=== PATIENT | male | born 1990 | race American Indian/Alaskan Native ===

== ENCOUNTER 2021-06-07 13:32 | Emergency (ER) | payer OTHER ==
--- NOTE | 2021-06-07 15:03 | RAD REPORT ---
EXAM DESCRIPTION: US - Scrotum Testicles - 06/07/2021 2:50 pm CLINICAL HISTORY: scrotal pain COMPARISON: Scrotum Testicles dated 06/05/2017 FINDINGS: The right testicle 4.1 x 2.2 x 2.8 cm with volume of 13.3 cc. No intratesticular masses or evidence of testicular torsion. The left testicle 4.1 x 1.9 x 3.8 cm with volume of 15.7 cc. No intratesticular masses or evidence of testicular torsion. Both epididymides are normal in size and appearance. No pathologic fluid collections. IMPRESSION: Unremarkable study. Vascular flow was present within both testicles.
[2021-06-07 16:42] LABS: Urine Blood Negative (Negative); Urine Glucose Negative (Negative); Urine Protein Negative (Negative)
[2021-06-07] MEDS ORDERED: NA CHLORIDE 0.9% 1,000 ML ONE (16:56)
[2021-06-07 16:58] LABS: Absolute Lymphocytes (CBC) 1.1 K/uL (0.7-4.9); Basophils % 0.8 % (0-1.3); Hematocrit 45.3 % (39.6-49.0); Lymphocytes % 31.2 % (15.3-44.8); RBC Red Blood Cell Count 5.57 M/uL (4.33-5.43)
[2021-06-07 17:11] LABS: Urine Bacteria <20 /HPF (NONE SEEN); Urine RBC NONE SEEN /HPF (NONE SEEN)
[2021-06-07 17:19] LABS: ALT/SGPT 29 U/L (12-78); AST/SGOT 19 U/L (15-37); Albumin 4.4 g/dL (3.4-5.0); Alkaline Phosphatase 55 U/L (45-117); BUN Blood Urea Nitrogen 16 mg/dL (7-18); Bicarbonate 28 mmol/L (21-32); Bilirubin Direct 0.3 mg/dL (0-0.2); Bilirubin Total 1.2 mg/dL (0.2-1.0); Glucose Level 92 mg/dL (74-106); Lipase 102 U/L (73-393); Potassium 3.9 mmol/L (3.5-5.1); Protein, Total 7.9 g/dL (6.4-8.2); Sodium Level 140 mmol/L (136-145)
--- NOTE | 2021-06-07 17:34 | RAD REPORT ---
EXAM DESCRIPTION: CTAbdomen Pelvis W Contrast - 06/07/2021 5:26 pm CLINICAL HISTORY: Abdominal pain. RLQ PAIN COMPARISON: No comparisons TECHNIQUE: Biphasic CT imaging of the abdomen and pelvis was performed with 100 ml non-ionic IV cont rast. All CT scans are performed using dose optimization technique as appropriate and may include automated exposure control or mA/KV adjustment according to patient size. FINDINGS: The lung bases are clear. The liver, spleen, pancreas, adrenal glands and kidneys are within normal limits. Moderate stool is present within the colon. No bowel obstruction is identified. No appendicitis ident ified. The appendix is normal. There is some fluid within the distal small bowel which is nonspecific . No inflammatory changes are identified. No evidence of significant lymphadenopathy. No suspicious bony findings. IMPRESSION: No acute intra-abdominal or pelvic finding. Normal appendix No urinary tract calculi mya ntified.
--- NOTE | 2021-06-07 18:51 | ER ---
Nurse's Notes [facility] Name: Bhavin Correa Age: 31 yrs Sex: Male : 1990 Arrival Date: 06/07/2021 Time: 13:36 Bed 30 Private MD: Santo Cuveas R Diagnosis: Abdominal pain, unspecified-groin pain Presentation: 06/07 13:38 Chief complaint: Sudden onset testicular pain that radiates to groin after standing up hb form chair today. Coronavirus screen: At this time, the client does not indicate any symptoms associated with coronavirus-19. Ebola Screen: No symptoms or risks identified at this time. Initial Sepsis Screen: Does the patient meet any 2 criteria? No. Patient's initial sepsis screen is negative. Does the patient have a suspected source of infection? No. Patient's initial sepsis screen is negative. Risk Assessment: Do you want to hurt yourself or someone else? Patient reports no desire to harm self or others. Onset of symptoms was June 07, 2021. 13:38 Method Of Arrival: Ambulatory hb 13:38 Acuity: OLLIE 3 hb Historical: - Allergies: 13:39 No Known Allergies; hb - Home Meds: 13:39 None [Active]; hb - PMHx: 13:39 None; hb - PSHx: 13:39 None; hb - Immunization history:: Adult Immunizations up to date. - Social history:: Smoking status: Patient denies any tobacco usage or history of. Screenin:50 Abuse screen: Denies threats or abuse. Nutritional screening: No deficits noted. vg1 Tuberculosis screening: No symptoms or risk factors identified. Fall Risk No fall in past 12 months (0 pts). No secondary diagnosis (0 pts). No IV (0 pts). Ambulatory Aid- None/Bed Rest/Nurse Assist (0 pts). Gait- Normal/Bed Rest/Wheelchair (0 pts) Mental Status- Oriented to own ability (0 pts). Total [place] Fall Scale indicates No Risk (0-24 pts). Assessment: 13:50 General: Appears in no apparent distress. comfortable, Behavior is calm, cooperative. vg1 Pain: Complains of pain in groin and right femoral area Pain currently is 3 out of 10 on a pain scale. Pain began about a week ago. Neuro: Level of Consciousness is awake, alert, obeys commands, Oriented to person, place, time, situation. Cardiovascular: Patient's skin is warm and dry. Respiratory: Airway is patent Respiratory effort is even, unlabored. GI: No signs and/or symptoms were reported involving the gastrointestinal system. : No signs and/or symptoms were reported regarding the genitourinary system. EENT: No signs and/or symptoms were reported regarding the EENT system. Derm: Skin is intact, is healthy with good turgor. Musculoskeletal: Circulation, motion, and sensation intact. 14:53 Reassessment: Patient appears in no apparent distress at this time. No changes from vg1 previously documented assessment. Patient and/or family updated on plan of care and expected duration. Pain level reassessed. Patient is alert, oriented x 3, equal unlabored respirations, skin warm/dry/pink. 16:12 Reassessment: Patient appears in no apparent distress at this time. No changes from vg1 previously documented assessment. Patient and/or family updated on plan of care and expected duration. Pain level reassessed. Patient is alert, oriented x 3, equal unlabored respirations, skin warm/dry/pink. 18:03 Reassessment: Patient appears in no apparent distress at this time. No changes from vg1 previously documented assessment. Patient is alert, oriented x 3, equal unlabored respirations, skin warm/dry/pink. 19:14 Reassessment: Patient appears in no apparent distress at this time. Patient and/or vg1 family updated on plan of care and expected duration. Pain level reassessed. Patient is alert, oriented x 3, equal unlabored respirations, skin warm/dry/pink. Patient denies pain at this time. Vital Signs: 13:38 BP 126 / 83; Pulse 81; Resp 16; Temp 97.7; Pulse Ox 100% on R/A; Weight 56.7 kg; Height hb 5 ft. 9 in. (175.26 cm); Pain 5/10; 14:53 BP 117 / 77; Pulse 78; Resp 16; Pulse Ox 100% on R/A; vg1 16:12 BP 114 / 79; Pulse 70; Resp 16; Pulse Ox 100% ; vg1 16:52 BP 125 / 80; Pulse 70; Resp 16; Pulse Ox 100% on R/A; vg1 18:03 BP 114 / 73; Pulse 78; Resp 16; Pulse Ox 100% on R/A; vg1 13:38 Body Mass Index 18.46 (56.70 kg, 175.26 cm) hb ED Course: 13:36 Patient arrived in ED. am2 13:36 Santo Cuevas MD is Private Physician. am2 13:39 Triage completed. hb 13:39 Arm band placed on. hb 13:47 Dillon Rodas NP is PHCP. pm1 13:47 Kali Franz MD is Attending Physician. pm1 13:50 Patient has correct armband on for positive identification. Placed in gown. Bed in low vg1 position. Call light in reach. Side rails up X 1. 13:50 Patient did not have IV access during this emergency room visit. vg1 14:08 Araceli Pike, RN is Primary Nurse. vg1 14:51 US Scrotum Testicles In Process Unspecified. EDMS 16:52 Initial lab(s) drawn, by hi, sent to lab. Inserted saline lock: 20 gauge in right vg1 antecubital area, using aseptic technique. Blood collected. 17:12 IV discontinued, intact, bleeding controlled, No redness/swelling at site. Pressure vg1 dressing applied, IV inflitrated. 17:12 Inserted saline lock: 20 gauge in left antecubital area, using aseptic technique. vg1 17:25 CT Abd/Pelvis - IV Contrast Only In Process Unspecified. EDMS 19:14 No provider procedures requiring assistance completed. IV discontinued, intact, vg1 bleeding controlled, No redness/swelling at site. Pressure dressing applied. Administered Medications: 16:52 Drug: NS 0.9% 1000 ml Route: IV; Rate: 1000 ml; Site: right antecubital; vg1 19:14 Follow up: IV Status: Completed infusion; IV Intake: 1000ml vg1 Intake: 19:14 IV: 1000ml; Total: 1000ml. vg1 Outcome: 18:50 Discharge ordered by . pm1 19:14 Discharged to home ambulatory. vg1 19:14 Condition: stable 19:14 Discharge instructions given to patient, Instructed on discharge instructions, follow up and referral plans. Demonstrated understanding of instructions, follow-up care. 19:14 Patient left the ED. vg1 Signatures: Dispatcher [employer] EDMS Dillon Rodas NP DUMP TR[employer] OPERATOR pm1 Dionne Ellis RN RN hb Devi Browne am2 Araceli Pike RN RN vg1 Corrections: (The following items were deleted from the chart) 13:40 13:39 PSHx: None; hb hb
--- NOTE | 2021-06-07 18:51 | EDPHYS ---
Physician Documentation [facility] Name: Bhavin Correa Age: 31 yrs Sex: Male : 1990 Arrival Date: 06/07/2021 Time: 13:36 Bed 30 Private MD: Santo Cuevas R ED Physician Kali Franz HPI: 06/07 13:57 This 31 yrs old Other Male presents to ER via Ambulatory with complaints of Groin Pain, pm1 Testicular Pain. 13:57 The patient presents with scrotal pain, of the right side, right groin pain. Onset: The pm1 symptoms/episode began/occurred today. Modifying factors: The symptoms are alleviated by nothing, the symptoms are aggravated by movement. Associated signs and symptoms: Pertinent positives: abdominal pain, Pertinent negatives: constipation, fever, nausea, vomiting. Severity of symptoms: in the emergency department the symptoms have improved. The patient has experienced a previous episode, approximately 1 weeks ago, and the symptoms today are exactly the same. The patient has been recently seen by a physician: with similar presenting complaints, lab tests were done, an ultrasound was done, CT scan was done, 06/01/2021. Historical: - Allergies: 13:39 No Known Allergies; hb - Home Meds: 13:39 None [Active]; hb - PMHx: 13:39 None; hb - PSHx: 13:39 None; hb - Immunization history:: Adult Immunizations up to date. - Social history:: Smoking status: Patient denies any tobacco usage or history of. ROS: 13:57 Constitutional: Negative for fever, chills, and weight loss, Cardiovascular: Negative pm1 for chest pain, palpitations, and edema, Respiratory: Negative for shortness of breath, cough, wheezing, and pleuritic chest pain. 13:57 MS/Extremity: Negative for injury and deformity, Skin: Negative for injury, rash, and discoloration. 13:57 Abdomen/GI: Positive for abdominal pain, Negative for nausea, vomiting, and diarrhea. 13:57 : Positive for testicular pain Negative for urinary symptoms, flank pain, burning with urination. 13:57 All other systems are negative. Exam: 13:57 Constitutional: This is a well developed, well nourished patient who is awake, alert, pm1 and in no acute distress. Head/Face: Normocephalic, atraumatic. 13:57 Back: No spinal tenderness. No costovertebral tenderness. Full range of motion. Skin: Warm, dry with normal turgor. Normal color with no rashes, no lesions, and no evidence of cellulitis. MS/ Extremity: Pulses equal, no cyanosis. Neurovascular intact. Full, normal range of motion. 13:57 Eyes: Exam is negative for acute changes, Periorbital structures: appear normal, Extraocular movements: intact throughout. 13:57 ENT: Exam is negative for acute changes, Mouth: Lips: normal, Oral mucosa: normal, pink and intact, moist. 13:57 Cardiovascular: Exam negative for acute changes, Rate: normal, Rhythm: regular, Pulses: no pulse deficits are appreciated. 13:57 Respiratory: Exam negative for acute changes, respiratory distress, shortness of breath. 13:57 Abdomen/GI: Exam negative for acute changes, Inspection: abdomen appears normal, Palpation: abdomen is soft and non-tender. 13:57 : Male external genitalia: normal, Circumcision noted. penile discharge, is absent, tenderness, of the left testicle is noted. 13:57 Neuro: Exam negative for acute changes, Orientation: is normal, Mentation: is normal, Motor: is normal, moves all fours. Vital Signs: 13:38 BP 126 / 83; Pulse 81; Resp 16; Temp 97.7; Pulse Ox 100% on R/A; Weight 56.7 kg; Height hb 5 ft. 9 in. (175.26 cm); Pain 5/10; 14:53 BP 117 / 77; Pulse 78; Resp 16; Pulse Ox 100% on R/A; vg1 16:12 BP 114 / 79; Pulse 70; Resp 16; Pulse Ox 100% ; vg1 16:52 BP 125 / 80; Pulse 70; Resp 16; Pulse Ox 100% on R/A; vg1 18:03 BP 114 / 73; Pulse 78; Resp 16; Pulse Ox 100% on R/A; vg1 13:38 Body Mass Index 18.46 (56.70 kg, 175.26 cm) hb MDM: 13:47 Patient medically screened. pm1 18:45 Data reviewed: vital signs. Data interpreted: Pulse oximetry: on room air is 100 %. pm1 Interpretation: normal. Counseling: I had a detailed discussion with the patient and/or guardian regarding: the historical points, exam findings, and any diagnostic results supporting the discharge/admit diagnosis, lab results, radiology results, the need for outpatient follow up, to return to the emergency department if symptoms worsen or persist or if there are any questions or concerns that arise at home. 06/07 13:57 Order name: Urine Microscopic Only pm1 06/07 13:57 Order name: Urine Microscopic Only; Complete Time: 17:20 EDMS 06/07 16:23 Order name: Basic Metabolic Panel; Complete Time: 17:20 pm1 06/07 16:23 Order name: CBC with Diff; Complete Time: 17:20 pm1 06/07 16:23 Order name: Hepatic Function; Complete Time: 17:20 pm1 06/07 16:23 Order name: Lipase; Complete Time: 17:20 pm1 06/07 13:57 Order name: Urine Dipstick-Ancillary (obtain specimen); Complete Time: 16:52 pm1 06/07 13:57 Order name: US Scrotum Testicles; Complete Time: 15:13 pm1 06/07 16:23 Order name: IV Saline Lock; Complete Time: 16:52 pm1 06/07 16:23 Order name: Labs collected and sent; Complete Time: 16:52 pm1 06/07 16:23 Order name: CT Abd/Pelvis - IV Contrast Only; Complete Time: 18:04 pm1 06/07 16:42 Order name: Urine Dipstick-Ancillary; Complete Time: 16:45 EDMS 06/07 17:47 Order name: CREATININE WHOLE BLOOD; Complete Time: 18:04 EDMS Administered Medications: 16:52 Drug: NS 0.9% 1000 ml Route: IV; Rate: 1000 ml; Site: right antecubital; vg1 19:14 Follow up: IV Status: Completed infusion; IV Intake: 1000ml vg1 Disposition Summary: 06/07/21 18:50 Discharge Ordered Location: Home pm1 Problem: new pm1 Symptoms: have improved pm1 Condition: Stable pm1 Diagnosis - Abdominal pain, unspecified - groin pain pm1 Followup: pm1 - With: Emergency Department - When: As needed - Reason: Worsening of condition Followup: pm1 - With: Private Physician - When: 2 - 3 days - Reason: Recheck today's complaints, Continuance of care, Re-evaluation by your physician Discharge Instructions: - Discharge Summary Sheet pm1 - Abdominal Pain, Adult pm1 - Testicular Self-Exam pm1 Forms: - Medication Reconciliation Form pm1 - Thank You Letter pm1 - Antibiotic Education pm1 - Prescription Opioid Use pm1 Addendum: 06/11/2021 07:44 Co-signature as Attending Physician, Kali Franz MD. r n Signatures: Dispatcher [employer] EDCT Kali Franz MD MD rn Dillon Rodas, SASHA SHAFT SINKER pm1 Dionne Ellis RN RN Araceli Feliz RN RN vg1 Corrections: (The following items were deleted from the chart) 06/07 13:40 13:39 PSHx: None; hb hb
[2021-06-07 19:24] VITALS: TEMP 97.7; O2SAT 100
[2021-06-07 19:31] VITALS: BP 114/73
== END 2021-06-07 19:14 | disposition home or self-care (01) ==
LOC: ER 13:32
DX: R10.31 Right lower quadrant pain (principal)
CPT/HCPCS: 96361; 85025; 80048; 36415; 82565; 80076; 83690; 74177; 76870; 96360; 99284; Q9967; J7030; 81003; 81015